=== PATIENT | male | born 1965 | race Caucasian/White ===

== ENCOUNTER 2022-08-04 08:36 | Outpatient (CLI) | payer OTHER ==
--- NOTE | 2022-08-04 09:39 | SLEEP CARE CONSULTATION ---
Information from patient questionnaire entered by Paulina Manzano. I have reviewed and concur with the information entered by Paulina Manzano. This document represents the service I personally performed and the decisions made by me, Dalia Marcelino ARNP. History of Present Illness Service Date and Time: 08/04/2022 0836 Reason for Visit: New patient, sleep apnea on CPAP therapy Chief Complaint: reports: Snoring, Observed pauses in breathing Date of Onset: 20YRS Usual bedtime: 9PM Time it takes to fall asleep: NOT LONG Snores at night: Yes Observed to quit breathing while asleep: Yes Sleeps alone due to snoring: No Number of times waking at night: 2 Reasons for waking at night: reports: Bathroom Toss, Turn, or Twitch while sleeping: No Recalls having dreams: Yes Usually gets out of bed at: 5AM Feels refreshed in the morning: Yes Morning headache: No Sleepy or fatigued during the day: No Ever fallen asleep while driving: No Takes day naps: No Dreams during day naps: No Prior sleep studies: Yes Year and Where: 2017 [facility] Additional HPI information: JERSON BADILLO was previously diagnosed to have severe, AHI 37.5, obstructive sleep apnea-hypopnea syndrome as seen in a sleep study dated 08/15/2017 done by [facility] and comes in today to establish care for CPAP therapy. - Parasomnia Symptoms Ever been unable to move upon waking from sleep: No Walks in sleep: No Talks in sleep: No Ever acted out dreams in sleep: No Ever felt weak in the knees when startled or emotional: No Bothered by creepy, crawly, restless sensations in legs: No Problems with memory or concentration: No CPAP Compliance Data - Data Reviewed with Patient Average duration of nightly device use: 3 hours 37 minutes Compliance rate %: 19 (44/90 days used) Current pressure setting (cmH2O): 6-14 Average residual AHI: 0.7 Central apnea: 0 Obstructive apnea: 0.5 Average large leak: 11.7 L/min Compliance data discussion: He has an Resmed 10 that was set up on 10/23/2017. He is getting supplies from [employer]. He is using a nasal pillows ResMed P10. He does have a back up mask and changes his cushion every month or so. He cleans it regularly. He states the humidifier is not working right on the device. He is getting condensation in the tubing and has tried to make adjustments for the humidifier and heated hose without any resolution. He was told by his last sleep provider that the humidifier was usually "the first thing to go" when a machine is aging. He states normally he is very compliant with his CPAP use but recently he has been having to wait for replacement supplies. He has had issues with his dog chewing on his tubing and other parts which made it hard to use the CPAP. He just got some more supplies to replace those his dog destroyed. Subjective Missed days of use due to: reports: other (dog has chewed on hose and other parts) Patient concerns: reports: condensation in mask/hose (getting worse over the last year), other. denies: aerophagia, mask discomfort, air blowing in eyes, mask leak noise, nasal congestion, dry mouth, nose, throat, epistaxis Observed to snore while using device: No Current pressure setting perceived as: comfortable On therapy, patient: reports: sleeping better, awakening more refreshed, being more awake and alert during the day, more rested overall. 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 Patient is and lives in [place]. Have you smoked in the past 12 months: No Alcohol use: Yes Alcohol amount and frequency: NOT MUCH EVERY FEW DAYS Caffeine use: Yes Caffeine amount and frequency: 2 CUPS COFFEE EVERY MORNING Family History Family history of sleep disordered breathing: No Allergies and Home Medications Known drug allergies: No Drug allergies reviewed: Yes Home medication list reviewed: Yes (Lisinopril 10 mg daily) Review of Systems Cardiovascular: denies: high blood pressure Gastrointestinal: denies: heartburn Neurological: denies: headaches Psychiatric: denies: anxiety, depression Ear/Nose/Throat: reports: tonsillectomy Immunologic: denies: allergies to food or environment Physical Exam Vital signs obtained and entered by: PAULINA Varela MA Blood Pressure: 122/78 (LEFT ARM) Cuff size: regular Heart Rate: 59 O2 Saturation: 99 Height: 6 ft Weight: 233 lb 12.8 oz Body Mass Index: 31.7 BMI Classification: Obese Neck circumference: 17.5 Heart: regular rate and rhythm Lungs: clear bilaterally Impression and Plan 1. Obstructive Sleep Apnea-Hypopnea Syndrome, severe, with fair treatment compliance and good apnea control. On CPAP therapy, the patient has better sleep quality and is more rested overall. Patient has significant improvement of their sleep apnea and is satisfied with current CPAP therapy. Patient has an air sense 10 that was updated in October 2017. He will be eligible in October for a new device. He would like me to go ahead and order it now so that he can get it in October. He can call me if there is any issues with updating his machine at this time. The patients CPAP is over 5 years old and of reasonable use. He is starting to have problems with his humidifier and getting lots of condensation in the tubing which is limiting his use of his machine. Thus, the CPAP will be updated. A DWO prescription will be made. Compliance guidelines for new device and follow up discussed. Patient's apnea severity and rationale for treatment to reduce apnea, improve sleep quality and reduce cardiovascular and cerebrovascular events was reviewed. I also reviewed the benefit of consistent device use of CPAP for hypertension. * Continue auto CPAP pressure at 6-14 cmH2O * Update machine * Update supplies * Notify me if snoring with mask or feeling that the pressure is too much or too little * Attempt to lose weight * Call this office if any problems using CPAP * Return for follow up one month after obtaining new machine, or sooner if concerns arise Counseling Topics: Spare mask, Weight loss health impact Visit Type: In Office Time Spent with Patient (minutes): 30 Provider Statement: I spent 100% of the Face to Face Visit with the patient with greater than 50% spent counseling the patient and coordination of care.
[2022-08-04 09:42] VITALS: BP 122/78
== END 2022-08-04 08:37 | disposition home or self-care (01) ==
LOC: SC 08:36
PROVIDERS: ATTEND Nurse Practitioner Family
DX: G47.33 Obstructive sleep apnea (adult) (pediatric) (principal); E66.9 Obesity, unspecified; Z68.31 Body mass index [BMI] 31.0-31.9, adult
CPT/HCPCS: 99203; 99212